=== PATIENT | female | born 1960 | race Two or more races ===

== ENCOUNTER 2020-07-27 04:33 | Inpatient (IN) | payer BC ==
[~2020-07-27] VITALS: Ht 152.4 cm; Wt 54.0 kg
[2020-07-27 04:27] VITALS: BP 147/86
[2020-07-27] MEDS ORDERED: MULT-245 PO (05:25)
[2020-07-27] MEDS ORDERED: fentaNYL PF VIAL 100 MCG/2 ML VIAL IVP PRN (05:30)
[2020-07-27] MEDS ORDERED: ONDANSETRON PF 4 MG/2 ML VIAL. IVP PRN ×2 (05:30→17:15)
[2020-07-27] MEDS: IV NORMAL SALINE 1000ML BAG 1,000 ML IV SCH ×2 (05:34→18:00)
[2020-07-27 07:00] VITALS: BP 138/85
[2020-07-27] MEDS: PIPERACILLIN/TAZOBACTAM 3.375 GM in IV NORMAL SALINE 50ML 50 ML IV SCH ×3 (07:57→17:33)
--- NOTE | 2020-07-27 09:38 | PDOC2 ---
ABRAHAM SINGER DAIRY BACTERIOLOGIST 07/27/20 0938: CONSULT Date of Consult Date of Consult DATE: 07/27/20 TIME: 09:35 Reason for Consult Reason for Consult: SBO Referring Physician Referring Physician: ER Identification/Chief Complaint Chief Complaint abdominal pain Source Source: Chart review, Patient History of Present Illness Reason for Visit: Acute onset of abdominal pain, vomiting yesterday. Had a normal stool in AM yesterday, no flatus today. Pain is improved Hx of colon cancer and hemicolectomy in 2005 Past Medical History Heme/Onc: Cancer (colon) Family History Family History: Family History Unknown Social History # pack years ALCOHOL: none Drugs: None Lives: with Family Current Medications Current Medications Current Medications Ondansetron HCl (Zofran) 4 mg PRN Q4HRS PRN IVP NAUSEA/VOMITING; Start 07/27/20 at 05:30 Fentanyl Citrate (Fentanyl 2ml Vial) 50 mcg PRN Q3HRS PRN IVP PAIN; Start 07/27/20 at 05:30 Sodium Chloride 1,000 ml @ 80 mls/hr [id number] IV Last administered on 07/27/20at 05:34; Start 07/27/20 at 05:30 Piperacillin Sod/ Tazobactam Sod 3.375 gm/Sodium Chloride 50 ml @ 100 mls/hr Q6HRS IV Last administered on 07/27/20at 07:57; Start 07/27/20 at 09:00 Active Scripts Active Reported Multi Vitamin Daily (Multivitamin) 1 Each Tablet 1 Tab PO DAILY 30 Days Allergies Allergies: Coded Allergies: Iodinated Contrast Media (Unverified Allergy, Unknown, 07/27/20) ROS General: No: Chills, Other (fevers ) PSYCHOLOGICAL ROS: No: Anxiety, Depression Eyes: No Blurry vision, No Double vision HEENT: No: Heacaches, Sore Throat Hematological and Lymphatic: No: Bleeding Problems, Blood Clots Respiratory: No: Cough, Shortness of breath Cardiovascular: No Chest Pain, No Palpitations Gastrointestinal: Yes Other (see hpi) Genitourinary: No Dysuria, No Retention Musculoskeletal: No Joint Pain, No Muscle Pain Neurological: No Impaired Coord/balance, No Numbness/Tingling Skin: No Pruritus, No Rash Physical Exam General: Alert, Oriented X3, Cooperative HEENT: Atraumatic, PERRLA Lungs: Clear to auscultation, Normal air movement Heart: Regular rate, Normal S1, Normal S2 Abdomen: Soft, No tenderness, No hepatosplenomegaly, Other (midline scar) Extremities: No clubbing, No cyanosis Skin: No rashes, No breakdown Neuro: Normal gait, Normal speech Psych/Mental Status: Mental status NL, Mood NL MUSCULOSKELETAL: No deformity, No swelling Vitals VITALS Vital Signs Date Time Temp Pulse Resp B/P (MAP) Pulse Ox O2 Delivery O2 Flow Rate FiO2 07/27/20 08:02 Room Air 07/27/20 07:00 98.8 88 21 138/85 (102) 95 98.8 Assessment/Plan Assessment/Plan sbo will check abdominal films bowel rest KAREN LICEA MD 07/27/20 1118: CONSULT Assessment/Plan Assessment/Plan Pt seen and examined. Agree with Ms. Singer's note Pt feels better today, denies pain abd soft, ND, NTTP, well healed incision previous hx of debulking surgery for ovarian cancer at [facility] pending but suspect able to ADAT Thanks for consult! ABRAHAM SINGER DAIRY BACTERIOLOGIST Jul 27, 2020 09:38 KAREN LICEA MD Jul 27, 2020 11:18
--- NOTE | 2020-07-27 10:38 | PDOC1 ---
History and Physical Date of Service: DOS: DATE: 07/27/20 TIME: 10:38 Chief Complaint: Chief Complain: Abdominal pain Allergies: Allergies: Coded Allergies: Iodinated Contrast Media (Unverified Allergy, Unknown, 07/27/20) Current Medications: Current Medications Current Medications Ondansetron HCl (Zofran) 4 mg PRN Q4HRS PRN IVP NAUSEA/VOMITING; Start 07/27/20 at 05:30 Fentanyl Citrate (Fentanyl 2ml Vial) 50 mcg PRN Q3HRS PRN IVP PAIN; Start 07/27/20 at 05:30 Sodium Chloride 1,000 ml @ 80 mls/hr [id number] IV Last administered on 07/27/20at 05:34; Start 07/27/20 at 05:30 Piperacillin Sod/ Tazobactam Sod 3.375 gm/Sodium Chloride 50 ml @ 100 mls/hr Q6HRS IV Last administered on 07/27/20at 07:57; Start 07/27/20 at 09:00 Active Scripts Active Reported Multi Vitamin Daily (Multivitamin) 1 Each Tablet 1 Tab PO DAILY 30 Days ROS: Review of Systems Review of System REVIEW OF SYSTEMS: GENERAL: Denies weakness SKIN: No bruising, hair changes or rashes. EYES: No blurred, double or loss of vision. NOSE AND THROAT: No history of nosebleeds, hoarseness or sore throat. HEART: No history of palpitations, chest pain or shortness of breath on exertion. LUNGS: Denies cough, hemoptysis, wheezing or shortness of breath. GASTROINTESTINAL: Denies changes in appetite, nausea, vomiting, diarrhea or constipation. GENITOURINARY: No history of frequency, urgency, hesitancy or nocturia. NEUROLOGIC: Denies history of numbness, tingling, or tremor. PSYCHIATRIC: No history of panic, anxiety or depression. ENDOCRINE: No history of heat or cold intolerance, polyuria or polydipsia. EXTREMITIES: Denies joint pain, pain on walking or stiffness. Physical Exam: Vital Signs: Vital Signs Date Time Temp Pulse Resp B/P (MAP) Pulse Ox O2 Delivery O2 Flow Rate FiO2 07/27/20 10:02 Room Air 07/27/20 07:00 98.8 88 21 138/85 (102) 95 98.8 Physcial Exam: GEN: No apparent distress. Alert and oriented HEENT: Normal cephalic, atraumatic, external auditory canals are patent EYES: Extraocular muscles are intact, pupil are equally round and reactive to light and accommodation MUSCULOSKELETAL: Well developed , well nourished, good range of motion ENDOCRINE: No thyromegaly was palpated LYMPHATICS: No cervical chain or axillary nodes were noted HEMATOPOIETIC: No bruising NECK: Supple, no JVD, no thyromegaly was noted LUNGS: Clear to auscultation in all lung jalloh without rhonchi or wheezing HEART: RRR, S!, S2 present. Peripheral pulses intact, no obvious murmurs noted ABDOMEN: Soft, nontender. Positive bowel sounds, no organomegaly, normal bowel sounds EXTREMITIES: Without clubbing, cyanosis, or edema. Pedal pulses intact. Negative Homans sign NEUROLOGIC: Normal speech and tone. A&O x 3, moves all extremities, no obvious focal deficits PSYCHIATRIC: Normal affect, normal mood. Stable SKIN: No ulcerations or rashes, good skin turgor, no jaundice VASCULAR: Good capillary refill, neurovascular bundle appears to be intact Justifications for Admission Other Justification DAMIAN REVELES MD Jul 27, 2020 10:38
[2020-07-27 11:00] VITALS: BP 182/101
[2020-07-27] MEDS ORDERED: LABETALOL 20 MG/4 ML DISP.SYRIN. IVP PRN (11:30)
--- NOTE | 2020-07-27 12:27 | NUR ---
SW following for discharge planning. Spoke with RN and reviewed chart. Pt from home with spouse. Pt on room air, IV Zosyn. Pt NPO. Pt admitted with small bowel obstruction. Surgery consulted. SW following.
--- NOTE | 2020-07-27 12:42 | RAD ---
ACUTE ABDOMEN SERIES History: Small bowel obstruction. Comparison: CT abdomen and pelvis without contrast, earlier same day, [facility]. Findings: Frontal chest and supine and upright views of the abdomen. There is right chest Port-A-Cath, tip in distal SVC. Cardiomediastinal silhouette is normal. There i s no pleural effusion or pneumothorax. The lungs are clear. No pneumoperitoneum is identified. No dilated air-filled loops of small bowel are seen. The abnormal small bowel loops noted on CT were mostly fluid-filled. There is suture material in the right midabdo men and in the pelvis. There is stool in the proximal colon and in the rectum. Bowel gas pattern is n onobstructive. No obvious organomegaly. Bones unremarkable. IMPRESSION: 1. No acute cardiopulmonary process. 2. Nonobstructive bowel gas pattern. Please note the small bowel obstruction noted on CT predominant ly involved fluid-filled small bowel. Electronically signed by: Mikel Hernandez MD (07/27/2020 12:39 PM) [id number]
[2020-07-27 15:00] VITALS: BP 127/73
[2020-07-27] MEDS ORDERED: DOCUSATE SODIUM 100 MG CAPSULE. PO PRN (17:15)
[2020-07-27] MEDS ORDERED: SENNOSIDES 8.6 MG TABLET PO PRN (17:15)
--- NOTE | 2020-07-27 17:20 | PDOC1 ---
History and Physical Date of Service: DOS: DATE: 07/27/20 TIME: 17:07 Chief Complaint: Chief Complain: Abdominal pain History of Present Illness: HPI: 54-year-old female with past medical history of colon cancer and hemicolectomy in 2005 who presents with abdominal pain and vomiting yesterday. Patient states that she did have a normal bowel movement yesterday morning but denies any flatus today. Denies any abdominal distention or bloating or nausea vomiting. Denies fevers, chest pain, dysuria, bloody stools Past Medical/Surgical History: PMH/PSH: Past medical and surgical history Colon cancer and hemicolectomy in 2005 Allergies: Allergies: Coded Allergies: Iodinated Contrast Media (Unverified Allergy, Unknown, 07/27/20) Family History: Family History: Reviewed with no relevant findings Social History: Social History: Denies alcohol, tobacco or drug abuse Current Medications: Current Medications Current Medications Ondansetron HCl (Zofran) 4 mg PRN Q4HRS PRN IVP NAUSEA/VOMITING; Start 07/27/20 at 05:30 Fentanyl Citrate (Fentanyl 2ml Vial) 50 mcg PRN Q3HRS PRN IVP PAIN; Start 07/27/20 at 05:30 Sodium Chloride 1,000 ml @ 80 mls/hr [id number] IV Last administered on 07/27/20at 05:34; Start 07/27/20 at 05:30 Piperacillin Sod/ Tazobactam Sod 3.375 gm/Sodium Chloride 50 ml @ 100 mls/hr Q6HRS IV Last administered on 07/27/20at 13:32; Start 07/27/20 at 09:00 Labetalol HCl (Normodyne Iv Push) 10 mg PRN Q2HR PRN IVP HYPERTENSION Last administered on 07/27/20at 11:32; Start 07/27/20 at 11:30 Active Scripts Active Reported Multi Vitamin Daily (Multivitamin) 1 Each Tablet 1 Tab PO DAILY 30 Days ROS: Review of Systems Review of System REVIEW OF SYSTEMS: GENERAL: Denies weakness SKIN: No bruising, hair changes or rashes. EYES: No blurred, double or loss of vision. NOSE AND THROAT: No history of nosebleeds, hoarseness or sore throat. HEART: No history of palpitations, chest pain or shortness of breath on exertion. LUNGS: Denies cough, hemoptysis, wheezing or shortness of breath. GASTROINTESTINAL: Denies changes in appetite, nausea, vomiting, diarrhea or constipation. GENITOURINARY: No history of frequency, urgency, hesitancy or nocturia. NEUROLOGIC: Denies history of numbness, tingling, or tremor. PSYCHIATRIC: No history of panic, anxiety or depression. ENDOCRINE: No history of heat or cold intolerance, polyuria or polydipsia. EXTREMITIES: Denies joint pain, pain on walking or stiffness. Physical Exam: Vital Signs: Vital Signs Date Time Temp Pulse Resp B/P (MAP) Pulse Ox O2 Delivery O2 Flow Rate FiO2 07/27/20 15:00 98.3 86 20 127/73 (91) 98 Room Air 98.3 Physcial Exam: GEN: No apparent distress. Alert and oriented HEENT: Normal cephalic, atraumatic, external auditory canals are patent EYES: Extraocular muscles are intact, pupil are equally round and reactive to light and accommodation MUSCULOSKELETAL: Well developed , well nourished, good range of motion ENDOCRINE: No thyromegaly was palpated LYMPHATICS: No cervical chain or axillary nodes were noted HEMATOPOIETIC: No bruising NECK: Supple, no JVD, no thyromegaly was noted LUNGS: Clear to auscultation in all lung jalloh without rhonchi or wheezing HEART: RRR, S!, S2 present. Peripheral pulses intact, no obvious murmurs noted ABDOMEN: Soft, nontender. Positive bowel sounds, no organomegaly, normal bowel sounds EXTREMITIES: Without clubbing, cyanosis, or edema. Pedal pulses intact. Negative Homans sign NEUROLOGIC: Normal speech and tone. A&O x 3, moves all extremities, no obvious focal deficits PSYCHIATRIC: Normal affect, normal mood. Stable SKIN: No ulcerations or rashes, good skin turgor, no jaundice VASCULAR: Good capillary refill, neurovascular bundle appears to be intact Images: Images CT impression reviewed shows predominantly involved fluid-filled small bowels. Acute abdominal series IMPRESSION: 1. No acute cardiopulmonary process. 2. Nonobstructive bowel gas pattern. Please note the small bowel obstruction noted on CT predominantly involved fluid-filled small bowel. Assessment/Plan Assessment/Plan Acute abdominal pain due to small bowel obstruction, possible partial Admit to medicine for further management Surgery consult N.p.o. and bowel rest Continue IV fluids Serial abdominal exam Lovenox for DVT prophylaxis N.p.o. Full code Discussed with RN and SW Disposition inpatient management as above Surrogate decision maker is the Justifications for Admission Other Justification DAMIAN REEVLES MD Jul 27, 2020 17:20
[2020-07-27 19:00] VITALS: BP 141/84
[2020-07-27 22:52] VITALS: BP 125/78
[2020-07-28] MEDS: PIPERACILLIN/TAZOBACTAM 3.375 GM in IV NORMAL SALINE 50ML 50 ML IV SCH ×3 (00:02→11:57)
[2020-07-28 02:23] VITALS: BP 131/72
[2020-07-28 05:23] LABS: BASO % 1 % (0-3); EOS # 0.2 x10^3/uL (0.0-0.7); EOS % 3 % (0-3); LYMPH # 3.1 x10^3/uL (1.0-4.8); LYMPH % 40 % (24-48); MEAN CORPUSCULAR HEMOGLOBIN 29 pg (25-35); MEAN CORPUSCULAR HGB CONC 33 g/dL (31-37); MEAN CORPUSCULAR VOLUME 88 fL (79-100); MONO # 0.6 x10^3/uL (0.0-1.1); MONO % 8 % (0-9); NEUT # 3.7 x10^3/uL (1.8-7.7); NEUT % 48 % (31-73); PLATELET COUNT 253 x10^3/uL (140-400); RED BLOOD COUNT 4.07 x10^6/uL (3.50-5.40); RED CELL DISTRIBUTION WIDTH 13.3 % (11.5-14.5); WHITE BLOOD COUNT 7.7 x10^3/uL (4.0-11.0)
[2020-07-28 05:46] LABS: CREATININE 0.8 mg/dL (0.6-1.0); GFR 73.2; POTASSIUM 3.8 mmol/L (3.5-5.1)
[2020-07-28 07:00] VITALS: BP 115/63
--- NOTE | 2020-07-28 10:00 | NUR ---
Doing well. Ambulated hallways with therapy. No c/o n/v. Stated had BM this am. Cont. monitor.
[2020-07-28 11:00] VITALS: BP 115/58
[2020-07-28] MEDS: IV NORMAL SALINE 1000ML BAG 1,000 ML IV SCH (11:58)
--- NOTE | 2020-07-28 13:00 | PDOC ---
SURGICAL PROGRESS NOTE DATE: 07/28/20 TIME: 12:58 Subjective Pt with c/o except mild abd pain RUQ, tesfaye clears, no n/V, passing flatus and stools. Vital Signs Vital Signs Date Time Temp Pulse Resp B/P (MAP) Pulse Ox O2 Delivery O2 Flow Rate FiO2 07/28/20 11:00 97.9 75 18 115/58 (77) 100 Room Air 97.9 I&O Intake and Output 07/28/20 07:00 Intake Total 500 ml Balance 500 ml Intake Oral 500 ml # Voids 2 General: Alert, Oriented X3, Cooperative, No acute distress Abdomen: Soft, No tenderness Labs Laboratory Tests Test 07/28/20 04:05 White Blood Count 7.7 x10^3/uL (4.0-11.0) Red Blood Count 4.07 x10^6/uL (3.50-5.40) Hemoglobin 12.0 g/dL (12.0-15.5) Hematocrit 36.0 % (36.0-47.0) Mean Corpuscular Volume 88 fL (79-100) Mean Corpuscular Hemoglobin 29 pg (25-35) Mean Corpuscular Hemoglobin Concent 33 g/dL (31-37) Red Cell Distribution Width 13.3 % (11.5-14.5) Platelet Count 253 x10^3/uL (140-400) Neutrophils (%) (Auto) 48 % (31-73) Lymphocytes (%) (Auto) 40 % (24-48) Monocytes (%) (Auto) 8 % (0-9) Eosinophils (%) (Auto) 3 % (0-3) Basophils (%) (Auto) 1 % (0-3) Neutrophils # (Auto) 3.7 x10^3/uL (1.8-7.7) Lymphocytes # (Auto) 3.1 x10^3/uL (1.0-4.8) Monocytes # (Auto) 0.6 x10^3/uL (0.0-1.1) Eosinophils # (Auto) 0.2 x10^3/uL (0.0-0.7) Basophils # (Auto) 0.0 x10^3/uL (0.0-0.2) Sodium Level 140 mmol/L (136-145) Potassium Level 3.8 mmol/L (3.5-5.1) Chloride Level 106 mmol/L (98-107) Carbon Dioxide Level 25 mmol/L (21-32) Anion Gap 9 (6-14) Blood Urea Nitrogen 10 mg/dL (7-20) Creatinine 0.8 mg/dL (0.6-1.0) Estimated GFR (Cockcroft-Gault) 73.2 Glucose Level 89 mg/dL (70-99) Calcium Level 8.0 mg/dL (8.5-10.1) Laboratory Tests Test 07/28/20 04:05 White Blood Count 7.7 x10^3/uL (4.0-11.0) Red Blood Count 4.07 x10^6/uL (3.50-5.40) Hemoglobin 12.0 g/dL (12.0-15.5) Hematocrit 36.0 % (36.0-47.0) Mean Corpuscular Volume 88 fL (79-100) Mean Corpuscular Hemoglobin 29 pg (25-35) Mean Corpuscular Hemoglobin Concent 33 g/dL (31-37) Red Cell Distribution Width 13.3 % (11.5-14.5) Platelet Count 253 x10^3/uL (140-400) Neutrophils (%) (Auto) 48 % (31-73) Lymphocytes (%) (Auto) 40 % (24-48) Monocytes (%) (Auto) 8 % (0-9) Eosinophils (%) (Auto) 3 % (0-3) Basophils (%) (Auto) 1 % (0-3) Neutrophils # (Auto) 3.7 x10^3/uL (1.8-7.7) Lymphocytes # (Auto) 3.1 x10^3/uL (1.0-4.8) Monocytes # (Auto) 0.6 x10^3/uL (0.0-1.1) Eosinophils # (Auto) 0.2 x10^3/uL (0.0-0.7) Basophils # (Auto) 0.0 x10^3/uL (0.0-0.2) Sodium Level 140 mmol/L (136-145) Potassium Level 3.8 mmol/L (3.5-5.1) Chloride Level 106 mmol/L (98-107) Carbon Dioxide Level 25 mmol/L (21-32) Anion Gap 9 (6-14) Blood Urea Nitrogen 10 mg/dL (7-20) Creatinine 0.8 mg/dL (0.6-1.0) Estimated GFR (Cockcroft-Gault) 73.2 Glucose Level 89 mg/dL (70-99) Calcium Level 8.0 mg/dL (8.5-10.1) I have reviewed the following KUB wnl Problem List Bowel obstruction appears resolved will ADAT and work towards d/c Justicifation of Admission Dx: Justifications for Admission: Justification of Admission Dx: N/A KAREN LICEA MD Jul 28, 2020 13:00
--- NOTE | 2020-07-28 13:16 | PDOC ---
[facility] PROGRESS NOTE Date of Service DOS: DATE: 07/28/20 TIME: 13:15 Chief Complaint Chief Complaint Acute abdominal pain due to small bowel obstruction, possible partial Admit to medicine for further management Surgery consultwe will advance diet as tolerated Continue IV fluids Serial abdominal exam Lovenox for DVT prophylaxis N.p.o. Full code Discussed with RN and SW Disposition anticipate discharge in the next 24 hours if patient continues to have flatus and stools and is tolerating regular diet. Surrogate decision maker is the History of Present Illness History of Present Illness 07/28/2020 No acute events tonight. Patient is tolerating clears and apparently is having flatus and stools. No concerns from nursing. Patient's chart, labs, images were reviewed and discussed with RN 54-year-old female with past medical history of colon cancer and hemicolectomy in 2005 who presents with abdominal pain and vomiting yesterday. Patient states that she did have a normal bowel movement yesterday morning but denies any flatus today. Denies any abdominal distention or bloating or nausea vomiting. Denies fevers, chest pain, dysuria, bloody stools Vitals/I&O Vitals/I&O: Vital Signs Date Time Temp Pulse Resp B/P (MAP) Pulse Ox O2 Delivery O2 Flow Rate FiO2 07/28/20 11:00 97.9 75 18 115/58 (77) 100 Room Air 97.9 I & O 07/27/20 07/27/20 07/28/20 15:00 23:00 07:00 Intake Total 500 ml Balance 500 ml Physical Exam General: Alert, Oriented X3, Cooperative, No acute distress Heart: Regular rate, Normal S1, Normal S2 Abdomen: Soft, No tenderness Extremities: No clubbing, No cyanosis Skin: No rashes, No breakdown Labs Labs: Laboratory Tests Test 07/28/20 04:05 White Blood Count 7.7 x10^3/uL (4.0-11.0) Red Blood Count 4.07 x10^6/uL (3.50-5.40) Hemoglobin 12.0 g/dL (12.0-15.5) Hematocrit 36.0 % (36.0-47.0) Mean Corpuscular Volume 88 fL (79-100) Mean Corpuscular Hemoglobin 29 pg (25-35) Mean Corpuscular Hemoglobin Concent 33 g/dL (31-37) Red Cell Distribution Width 13.3 % (11.5-14.5) Platelet Count 253 x10^3/uL (140-400) Neutrophils (%) (Auto) 48 % (31-73) Lymphocytes (%) (Auto) 40 % (24-48) Monocytes (%) (Auto) 8 % (0-9) Eosinophils (%) (Auto) 3 % (0-3) Basophils (%) (Auto) 1 % (0-3) Neutrophils # (Auto) 3.7 x10^3/uL (1.8-7.7) Lymphocytes # (Auto) 3.1 x10^3/uL (1.0-4.8) Monocytes # (Auto) 0.6 x10^3/uL (0.0-1.1) Eosinophils # (Auto) 0.2 x10^3/uL (0.0-0.7) Basophils # (Auto) 0.0 x10^3/uL (0.0-0.2) Sodium Level 140 mmol/L (136-145) Potassium Level 3.8 mmol/L (3.5-5.1) Chloride Level 106 mmol/L (98-107) Carbon Dioxide Level 25 mmol/L (21-32) Anion Gap 9 (6-14) Blood Urea Nitrogen 10 mg/dL (7-20) Creatinine 0.8 mg/dL (0.6-1.0) Estimated GFR (Cockcroft-Gault) 73.2 Glucose Level 89 mg/dL (70-99) Calcium Level 8.0 mg/dL (8.5-10.1) Comment Review of Relevant I have reviewed the following items malgorzata (where applicable) has been applied. Justifications for Admission Other Justification DAMIAN REVELES MD Jul 28, 2020 13:16
--- NOTE | 2020-07-28 14:00 | DISCH ---
DISCHARGE INSTRUCTIONS Condition on Discharge Condition on Discharge: Stable Activity After Discharge Activity Instructions for Disc: Activity as tolerated Driving Instructions after Dis: Do not drive today Diet after Discharge Diet after Discharge: GI Soft Follow-Up Follow up with: PCP within 2 weeks of discharge Follow Up With: Surgery as needed DAMIAN REVELES MD Jul 28, 2020 14:00
[2020-07-28] MEDS ORDERED: SENN-87 PO (14:01)
[2020-07-28] MEDS ORDERED: DOCU-153 PO (14:01)
--- NOTE | 2020-07-28 14:04 | NUR ---
SW following for discharge planning. Spoke with RN and reviewed chart. Pt to discharge home today, self-care. Spouse present. PT recommendation is home, independent. Diet advanced to GI soft. Pt on oral medications. No further SW needs at this time.
[2020-07-28 15:00] VITALS: BP 119/65
--- NOTE | 2020-07-28 17:00 | NUR ---
Discharge instructions given and prescriptions sent via electronic. Spoke with pt, spouse and also spoke with daughter in law on phone. All three verbalized understanding. Pt discharged home. Escorted out, pt ambulated.
--- NOTE | 2020-07-29 19:36 | PDOC3 ---
[facility]-Discharge Summary Discharge Diagnosis: Discharge Diagnosis: Acute abdominal pain due to small bowel obstruction, possible partial - resolved Hospital Course: Hospital Course: 07/28/2020 No acute events tonight. Patient is tolerating clears and apparently is having flatus and stools. No concerns from nursing. Patient's chart, labs, images were reviewed and discussed with RN 54-year-old female with past medical history of colon cancer and hemicolectomy in 2005 who presents with abdominal pain and vomiting yesterday. Patient states that she did have a normal bowel movement yesterday morning but denies any flatus today. Denies any abdominal distention or bloating or nausea vomiting. Denies fevers, chest pain, dysuria, bloody stools Disposition: Disposition/Orders: D/C to Home Activity: Activity: Resume previous activity Diet: Diet: Regular Medications: Home Meds Active Scripts Sennosides (SENNA LAX) 8.6 Mg Tablet, 17.2 MG PO PRN BID PRN for CONSTIPATION for 30 Days, #60 TAB Prov:DAMIAN REVELES MD 07/28/20 Docusate Sodium (DOK) 100 Mg Capsule, 100 MG PO PRN DAILY PRN for HARD STOOLS for 30 Days, #30 CAP Prov:DAMIAN REVELES MD 07/28/20 Reported Medications Multivitamin (MULTI VITAMIN DAILY) 1 Each Tablet, 1 TAB PO DAILY for supplement for 30 Days, #30 TAB 0 Refills 07/27/20 Scheduled Multivitamin (Multi Vitamin Daily), 1 TAB PO DAILY, (Reported) Scheduled PRN Docusate Sodium (Dok), 100 MG PO PRN DAILY PRN for HARD STOOLS Sennosides (Senna Lax), 17.2 MG PO PRN BID PRN for CONSTIPATION Total Time: Total Time: Total time spent was 34 minutes in preparing scripts, discharge planning with SW and RN, and preparing this discharge summary. Patient seen and examined on day of discharge. Justicifation of Admission Dx: Justifications for Admission: Justification of Admission Dx: N/A DAMIAN REVELES MD Jul 29, 2020 19:36
== END 2020-07-28 17:00 | disposition home or self-care (01) | DRG 390 ==
LOC: EDSEX 04:33 → 6 SOUTH 04:33
PROVIDERS: ADMIT Family Medicine; ATTEND Family Medicine
DX: K56.600 Partial intestinal obstruction, unspecified as to cause (principal); Z85.038 Personal history of other malignant neoplasm of large intestine; Z91.041 Radiographic dye allergy status; Z85.43 Personal history of malignant neoplasm of ovary
CPT/HCPCS: 36415; 74022; 80048; 85025; J2543; J3490; J7030; 97110-GP; 97535-GO; G0378